=== PATIENT | male | born 1985 | race Caucasian/White ===

== ENCOUNTER 2020-02-10 00:01 | Emergency (ER) | payer MEDICAID ==
[2020-02-10] MEDS ORDERED: LIDOCAINE 1%/EPINEPHRINE INJ 20 ML VIAL INJ ONE (00:20)
[2020-02-10 00:48] LABS: ABSOLUTE BASOPHILS # (AUTO) 0.1 10^3/uL (0.0-0.2); ABSOLUTE EOSINOPHILS # (AUTO) 0.2 10^3/uL (0.0-0.6); ABSOLUTE LYMPHOCYTES (AUTO) 1.7 10^3/uL (0.5-4.7); ABSOLUTE MONOCYTES (AUTO) 0.6 10^3/uL (0.1-1.4); ABSOLUTE NEUT (AUTO) 6.6 10^3/uL (1.7-8.2); BASOPHILS % (AUTO) 0.8 % (0-2); EOSINOPHILS % (AUTO) 1.7 % (0-6); HEMATOCRIT 41.7 % (37.9-51.0); HEMOGLOBIN 14.5 g/dL (13.5-17.0); LYMPHOCYTES % (AUTO) 18.1 % (13-45); MEAN CORPUSCULAR HEMOGLOBIN 30.1 pg (27.0-33.4); MEAN CORPUSCULAR HGB CONC 34.7 g/dL (32.0-36.0); MEAN CORPUSCULAR VOLUME 87 fl (80-97); MONOCYTES % (AUTO) 7.1 % (3-13); PLATELET COUNT 376 10^3/uL (150-450); RED BLOOD COUNT 4.81 10^6/uL (4.35-5.55); RED CELL DISTRIBUTION WIDTH 15.5 % (11.5-14.0); SEGMENTED NEUTROPHILS % (AUTO) 72.3 % (42-78); TOTAL CELLS COUNTED % (AUTO) 100 %; WHITE BLOOD COUNT 9.1 10^3/uL (4.0-10.5)
--- NOTE | 2020-02-10 00:51 | ER Document Report ---
Entered by MARILYN DENNIS SCRIBE 02/10/20 0015 Acting as scribe for:HODA OVIEDO IV, MD ED Psych Disorder / Suicide - General Chief Complaint: Suicidal Ideation Stated Complaint: SUICIDAL IDEATION Time Seen by Provider: 02/10/20 00:06 Mode of Arrival: Medic Information source: Patient, Emergency Med Personnel Notes: This 34 year old male patient with a history of bipolar disorder and schizophrenia brought in by EMS presents to the ED today with complaints of suicidal ideation. Per ED nurse, the patient has been staying in a motel for some time and has been off of his psychiatric medications for approximately x2 months. ED nurse reports that the patient has been having visual and auditory hallucinations for the past x4 days, visualizing people coming in to his hotel room to harm him and hearing commands to harm himself. According to ED nurse, the patient cut his left wrist and neck with a shaving razor as a suicide attempt just prior to arrival. Patient states that he called EMS. Patient has a history of hospitalization in a psychiatric facility and previous suicide attempts, last one over a year ago per ED nurse. Denies any other past medical h istory or taking any medications. Patient states that his tetanus is UTD. - Related Data Allergies/Adverse Reactions: haloperidol [From Haldol] Allergy (Verified 02/10/20 02:06) lithium Allergy (Verified 02/10/20 02:06) risperidone Allergy (Verified 02/10/20 02:08) ziprasidone [From Geodon] Allergy (Verified 02/10/20 02:08) Past Medical History - General Information source: Patient, Emergency Med Personnel - Social History Smoking Status: Unknown if Ever Smoked Cigarette use (# per day): No Chew tobacco use (# tins/day): No Smoking Education Provided: No Family History: Reviewed & Not Pertinent Patient has suicidal ideation: No Patient has homicidal ideation: No Psychiatric Medical History: Reports: Hx Bipolar Disorder, Hx Schizophrenia Past Surgical History: Reports: Hx Appendectomy, Hx Orthopedic Surgery - L shoulder Review of Systems - Review of Systems Constitutional: No symptoms reported EENT: No symptoms reported Cardiovascular: No symptoms reported Respiratory: No symptoms reported Gastrointestinal: No symptoms reported Genitourinary: No symptoms reported Male Genitourinary: No symptoms reported Musculoskeletal: No symptoms reported Skin: See HPI, Other - Lacerations Hematologic/Lymphatic: No symptoms reported Neurological/Psychological: See HPI, Hallucinations - Auditory and visual, Suicidal ideation -: Yes All other systems reviewed and negative Physical Exam - Vital signs Vitals: Temp Pulse Resp BP Pulse Ox 98.4 F 116 H 18 151/91 H 100 02/10/20 00:02 02/10/20 00:02 02/10/20 00:02 02/10/20 00:02 02/10/20 00:02 - General General appearance: Alert In distress: None - HEENT Head: Normocephalic, Atraumatic Eyes: Normal Pupils: PERRL Neck: Other - Multiple superficial lacerations to base of neck - Respiratory Respiratory status: No respiratory distress Chest status: Nontender Breath sounds: Normal Chest palpation: Normal - Cardiovascular Rhythm: Regular Heart sounds: Normal auscultation Murmur: No Friction rub: No Gallop: None auscultated - Abdominal Inspection: Obese Distension: No distension Bowel sounds: Normal Tenderness: Nontender - Abdomen soft Organomegaly: No organomegaly - Back Back: Normal, Nontender - Extremities General lower extremity: Normal inspection Wrist: Laceration - Left wrist - Neurological Neuro grossly intact: Yes - Psychological Associated symptoms: Depressed, Other - Avoids eye contact. Admits to ideas of suicidal ideation - Skin Skin irregularity: Laceration - 5 cm linear laceration to anterior surface of left wrist with minimal bleeding. Multiple superficial linear non-gaping lacerations across base of neck anteriorly with no bleeding. Course - Vital Signs Vital signs: Temp Pulse Resp BP Pulse Ox 98.4 F 116 H 18 151/91 H 100 02/10/20 00:02 02/10/20 00:02 02/10/20 00:02 02/10/20 00:02 02/10/20 00:02 - Laboratory Result Diagrams: 02/10/20 00:37 02/10/20 00:37 Laboratory results interpreted by me: 02/10/20 02/10/20 00:37 00:37 RDW 15.5 H Salicylates < 1.0 L Acetaminophen < 10 L - EKG Interpretation by Me Additional EKG results interpreted by me: 02/10/20 02:38 EKG obtained on 02/10/2020 at 00 56 hours was interpreted by this MD. Findings: Sinus tachycardia, rate 107, normal axis, P waves proceed QRS complexes, QRS complexes appear narrow, there are no obvious patterns of ST segment elevation or depression present to suggest acute myocardial ischemia or infarction. Impression sinus tachycardia with nonspecific ST segments. Procedures - Laceration/Wound Repair Left Anterior Wrist Time completed: 01:00 Wound length (cm): 5 Wound's Depth, Shape: Linear Laceration pre-procedure: Chloraprep applied Anesthetic type: 1% Lidocaine w/epi Volume Anesthetic (mLs): 3 Wound explored: Clean Irrigated w/ Saline (mLs): 20 Wound Repaired With: Sutures Suture Size/Type: 3:0, Prolene Number of Sutures: 18 - running Layer Closure?: No Post-procedure wound care: Sterile dressing applied Post-procedure NV exam normal: Yes Complications: No Discharge - Discharge Clinical Impression: Suicidal ideation, Involuntary commitment Laceration of wrist, left Qualifiers: Encounter type: initial encounter Qualified Code(s): S61.512A - Laceration without foreign body of left wrist, initial encounter Condition: Good Disposition: PSYCH HOSP/UNIT I personally performed the services described in the documentation, reviewed and edited the documentation which was dictated to the scribe in my presence, and it accurately records my words and actions.
[2020-02-10 01:04] LABS: ALBUMIN 3.7 g/dL (3.5-5.0); ALKALINE PHOSPHATASE 91 U/L (38-126); ANION GAP 8 (5-19); ASPARTATE AMINO TRANSFERASE 25 U/L (17-59); BILIRUBIN,TOTAL 0.4 mg/dL (0.2-1.3); BLOOD UREA NITROGEN 11 mg/dL (7-20); CALCIUM 9.4 mg/dL (8.4-10.2); CARBON DIOXIDE 24 mmol/L (22-30); CHLORIDE 106 mmol/L (98-107); GLUCOSE 107 mg/dL (75-110); POTASSIUM 3.7 mmol/L (3.6-5.0)
[2020-02-10 01:05] LABS: ACETAMINOPHEN < 10 ug/mL (10-30); ALCOHOL < 10 mg/dL (NONE DETECTED); SALICYLATE < 1.0 mg/dL (2.0-20.0)
[2020-02-10] MEDS ORDERED: ATORVASTATIN CALCIUM 10 MG TABLET PO ONE (03:00)
[2020-02-10] MEDS ORDERED: MIRTAZAPINE 15 MG TABLET PO ONE (03:00)
[2020-02-10] MEDS ORDERED: PANTOPRAZOLE SODIUM 40 MG TABLET.DR PO SCH (06:00)
[2020-02-10 06:59] LABS: APPEARANCE,URINE CLEAR; BILIRUBIN,URINE NEGATIVE (NEGATIVE); CALCIUM OXALATE CRYSTALS,URINE RARE /HPF; COLOR,URINE YELLOW; GLUCOSE, URINE NEGATIVE (NEGATIVE); KETONES,URINE NEGATIVE (NEGATIVE); LEUKOCYTE ESTERASE,URINE NEGATIVE (NEGATIVE); NITRITE,URINE NEGATIVE (NEGATIVE); PROTEIN,URINE NEGATIVE (NEGATIVE); URINE SPECIFIC GRAVITY 1.025
--- NOTE | 2020-02-10 07:03 | EKG REPORT ---
SEVERITY:- OTHERWISE NORMAL ECG - SINUS TACHYCARDIA : Confirmed by: Sandra Mistry 10-Feb-2020 07:03:33
[2020-02-10 07:13] LABS: URINE BARBITURATES SCREEN NEGATIVE; URINE BENZODIAZEPINES SCREEN NEGATIVE; URINE COCAINE SCREEN NEGATIVE; URINE MARIJUANA (THC) SCREEN NEGATIVE; URINE METHADONE SCREEN NEGATIVE; URINE PHENCYCLIDINE SCREEN NEGATIVE
[2020-02-10] MEDS ORDERED: HYDROCHLOROTHIAZIDE 25 MG TABLET PO SCH (08:00)
[2020-02-10] MEDS ORDERED: CHLORPROMAZINE HCL INJ 25 MG/1 ML AMPULE IM ONE (13:04)
--- NOTE | 2020-02-10 17:26 | PSYCHOLOGICAL NOTE ---
Psych Note - Psych Note Date seen by psych provider: 02/10/20 Time seen by psych provider: 12:14 - [id number] Psych Note: Presenting Problem: Patient is a 34 year old male who presented to the [facility] ED imaging services director hours via EMS for suicidal ideation with gesture: he cut his left wrist (5 centimeter laceration, required sutures) and neck (superficial) with a razor then called 9-1-1. He reported auditory and visual hallucinations. He stated he has diagnoses of Schizophrenia and Bipolar Disorders and has been off medications for the past couple months. Patient was subsequently put on a 24 Hour Petition for Evaluation. Observed patient hit/knock his Styrofoam cup off his tray table and get a loud tone of voice. He presented irritable and agitated but remained in his bed. This clinician was getting ready to walk in for evaluation. When asked what was going on patient said "I'm going to take these stitches out (went for his left wrist wound with his other hand, did not stick with it him but he did touch it) I'd rather be ." He admitted he had medications and was "taking it little by little." He was unable to name his medications. Patient has not been to the [facility] ED previously. He has a [place], [place] address. UDS was positive for methamphetamine (reading was so high on amphetamine screen it noted unable to calculate due to interfering substance). Review of recently filled medication in [facility] system from his pharmacy included: filled on 12/25/2019 Adderal XR 30MG QAM (prescriber Kiel Torres) and Remeron 15MG QHS (prescriber Dr. Nava). Additional medications included Atorvastatin 10MG QHS and Hydrochlorothiazide 25MG QD (both prescriber was Ying TEMPLE) and Omeprazole DR 40MG QD (Prescriber Dr. Nava). Patient was alert and oriented to self, person, place, and situation. Mood was depressed with irritable affect (labile if you include nurses report of patient crying after his phone call) as evidenced by hitting his Styrofoam cup off his food tray and loud tone. He endorsed passive SI saying "I'd rather be ," and had cut his left wrist (5 centimeter laceration required sutures) and neck (superficial) via razor prior to ED. Patient did not appear to be responding to internal stimuli as evidenced by answering questions appropriately when addressed. Thought processes were linear. Conversational speech was loud in tone when irritable bit otherwise within normal limits for rate and prosody. Intellectual abilities are estimated to be average. Insight, judgment and impulse control were poor as evidenced by irritability and continued SI. Collateral: Patient made a phone call to a Lizett ([phone]) from the nurses station. Attending Nurse noted patient told Lizett to just bring his boots to the hospital, that's where he was, that he had tried calling her, he was hearing voices and someone was trying to break into the hotel room he was staying in. Attending Nurse noted then patient started crying. From [phone] spoke to Lizett and her mother over the phone. Mother noted patient and her daughter Lizett met about a month ago when they were hospitalized at [facility]. Patient and Lizett kept in touch after they discharged. Patient told them the trailer his sister set him up in didn't have electricity or water so Lizett offered for him to come visit and stay for a couple days. They stated patient made comments that his sister is his caregiver, she takes all of his money and he doesn't even think she's his sister/he's requested a DNA test/she refuses. They identified patient had been staying with them for about a week. He at first did not present violent and did not talk about voices but per Lizett's mother "he seemed off like his brain wasn't functioning normal." They stated patient takes medication for nightmares and he said his diagnosis is Paranoid Schizophrenia. They stated patient said his medications were back home, Lizett's mother said he couldn't stay with them unless he took his medications, she took him to get 2-3 prescriptions from [facility] and this is why he was staying at the [facility]. Lizett stated she spoke to patient on Monday when she dropped him off at the motel, "he seemed fine, was not worked up." She stated she had not heard again from him until this afternoon when he called her. She reported he told her last night the curtains were moving and he was hearing voices. She denied drug and alcohol use but then mentioned he had 1-2 wine coolers the other day. She also noted she just met him a month ago when they were hospitalized, he has been to another hospital since and now he is in [facility] ED. They do not know sister's name or phone number and patient told them he lost the number. Lizett did say after his week is up at the [facility] she will take him back to where she picked him up from a couple hours away. Interventions: Used open ended questioning to obtain information regarding current crisis situation and past, as well as to get patient to elaborate. Used coming alongside when patient talked about wanting to leave and just . Diagnosis: Suicidal Ideation with gesture via cutting left wrist (5 centimeter laceration, required sutures) and neck (superficial) with razor Methamphetamine Intoxication with Use Hx of Schizophrenia and Bipolar Disorders per patient No medication for the past couple months per patient initial report to medical staff Medication recommendation made by the psychiatric medical provider, Dr. Paige PARDO., includes: Add Thorazine 50MG IM Once Now (only once due to QT and QTc intervals being higher) Impression/Plan: Recommendation for Full IVC (patient was on a 24 Hour Petition for Evaluation). Patient continued to endorse passive SI, had SI gesture via cutting wrist (5 centimeter laceration, required sutures) and neck (superficial) with razor prior to coming to ED, not on medication for a couple months, history of Schizophrenia and Bipolar per patient, UDS positive for Methamphetamine and depressed mood with irritability today (labile if you include nurses reported that after his phone call he started crying). Consulted with Dr. Franklin regarding the management and care of patient. ED Physician in agreement with recommendations.
[2020-02-10 18:34] VITALS: BP 135/70
[2020-02-10] MEDS ORDERED: ATORVASTATIN CALCIUM 10 MG TABLET PO SCH (22:00)
[2020-02-10] MEDS ORDERED: MIRTAZAPINE 15 MG TABLET PO SCH (22:00)
== END 2020-02-10 18:54 ==
LOC: EDSEX → ER 00:01
PROC: 0HQEXZZ Repair Left Lower Arm Skin, External Approach (ICD-10-PCS; principal; 2020-02-10)
DX: S61.512A Laceration without foreign body of left wrist, initial encounter (principal); R44.1 Visual hallucinations; R44.0 Auditory hallucinations; X78.9XXA Intentional self-harm by unspecified sharp object, initial encounter; Z79.899 Other long term (current) drug therapy; Z88.8 Allergy status to other drugs, medicaments and biological substances
CPT/HCPCS: 93005; 99285; 36415; 80307 ×4; 85025; 80053; 81001; 93010; 12002; J3230; J3490 ×3

== ENCOUNTER 2020-02-11 20:28 | Emergency (ER) | payer MEDICAID ==
--- NOTE | 2020-02-11 21:12 | RADIOLOGY REPORT (SQ) ---
CLINICAL INDICATION: PAIN . TECHNIQUE: A single portable AP view was obtained of the chest at 2056 hours. COMPARISON: None. FINDINGS: The cardiomediastinal silhouette is normal. The lungs are grossly clear. No evidence of effusion or pneumothorax. Postsurgical change left clavicle. IMPRESSION: No evidence of active intrathoracic disease. Lungs of low volume but grossly clear
[2020-02-11] MEDS ORDERED: ONDANSETRON HCL INJ/PF 4 MG/2 ML SDV IV ONE (21:22)
[2020-02-11] MEDS ORDERED: MORPHINE SULFATE 10 MG/ML INJ IV ONE (21:22)
[2020-02-11 21:27] LABS: ABSOLUTE BASOPHILS # (AUTO) 0.1 10^3/uL (0.0-0.2); ABSOLUTE EOSINOPHILS # (AUTO) 0.2 10^3/uL (0.0-0.6); ABSOLUTE LYMPHOCYTES (AUTO) 1.9 10^3/uL (0.5-4.7); ABSOLUTE MONOCYTES (AUTO) 0.8 10^3/uL (0.1-1.4); ABSOLUTE NEUT (AUTO) 6.2 10^3/uL (1.7-8.2); BASOPHILS % (AUTO) 0.7 % (0-2); EOSINOPHILS % (AUTO) 2.3 % (0-6); HEMATOCRIT 44.1 % (37.9-51.0); HEMOGLOBIN 15.1 g/dL (13.5-17.0); LYMPHOCYTES % (AUTO) 20.5 % (13-45); MEAN CORPUSCULAR HEMOGLOBIN 29.7 pg (27.0-33.4); MEAN CORPUSCULAR HGB CONC 34.2 g/dL (32.0-36.0); MEAN CORPUSCULAR VOLUME 87 fl (80-97); MONOCYTES % (AUTO) 8.5 % (3-13); PLATELET COUNT 403 10^3/uL (150-450); RED BLOOD COUNT 5.08 10^6/uL (4.35-5.55); RED CELL DISTRIBUTION WIDTH 15.9 % (11.5-14.0); TOTAL CELLS COUNTED % (AUTO) 100 %; WHITE BLOOD COUNT 9.1 10^3/uL (4.0-10.5)
[2020-02-11 21:37] LABS: ALBUMIN 3.8 g/dL (3.5-5.0); ALKALINE PHOSPHATASE 79 U/L (38-126); ANION GAP 8 (5-19); ASPARTATE AMINO TRANSFERASE 25 U/L (17-59); BILIRUBIN,TOTAL 0.3 mg/dL (0.2-1.3); BLOOD UREA NITROGEN 16 mg/dL (7-20); CALCIUM 9.7 mg/dL (8.4-10.2); CARBON DIOXIDE 25 mmol/L (22-30); CHLORIDE 104 mmol/L (98-107); CREATINE KINASE 64 U/L (55-170); GLUCOSE 103 mg/dL (75-110); POTASSIUM 4.5 mmol/L (3.6-5.0); TOTAL PROTEIN 7.1 g/dL (6.3-8.2)
--- NOTE | 2020-02-11 21:43 | ER Document Report ---
ED General <SUSYLOIS SANCHEZAZUCENA Castellon - Last Filed: 02/11/20 22:38> <HODA LEMUS IV - Last Filed: 02/12/20 00:54> - General Chief Complaint: Chest Pain Stated Complaint: CHEST PAIN Time Seen by Provider: 02/11/20 21:01 - HPI Notes: Patient is a 34-year-old male who presents to the emergency department for evaluation of chest pain. He was at [facility] under IVC. He states he woke up, had some chest pain. He sat up and felt dizzy. He describes it as a heaviness that he rates an 8 out of 10. Is on the left side of his chest. It does not radiate. He is short of breath. He does not note anything that makes his chest pain worse. Nothing seems to make it better. He was given aspirin and nitroglycerin in route without any relief of his symptoms. He denies ever having had symptoms like this in the past. (MARCELLO GARCIA) - Related Data Allergies/Adverse Reactions: haloperidol [From Haldol] Allergy (Verified 02/11/20 21:03) lithium Allergy (Verified 02/11/20 21:03) risperidone Allergy (Verified 02/11/20 21:03) ziprasidone [From Geodon] Allergy (Verified 02/11/20 21:03) Past Medical History - General Information source: Patient - Social History Smoking Status: Current Every Day Smoker Frequency of alcohol use: None Drug Abuse: None Family History: Reviewed & Not Pertinent, CAD, DM, Other - Blood clots per patient Patient has homicidal ideation: No Psychiatric Medical History: Reports: Hx Bipolar Disorder, Hx Schizophrenia Past Surgical History: Reports: Hx Appendectomy, Hx Orthopedic Surgery - L shoulder <MARCELLO GARCIA - Last Filed: 02/11/20 22:38> Review of Systems - Review of Systems Cardiovascular: See HPI Respiratory: See HPI -: Yes All other systems reviewed and negative <MARCELLO GARCIA - Last Filed: 02/11/20 22:38> Physical Exam <MARCELLO GARCIA - Last Filed: 02/11/20 22:38> - Vital signs Vitals: Temp Pulse Resp BP Pulse Ox 98.7 F 120 H 30 H 109/60 93 02/11/20 20:28 02/11/20 20:28 02/11/20 20:28 02/11/20 20:28 02/11/20 20:28 - Notes Notes: This is an anxious appearing 34-year-old male, obese, who appears his stated age, in a mild amount of distress. Vital signs reviewed, please refer to chart. Head is normocephalic, atraumatic. Pupils equal round, reactive to light. Neck is supple without meningismus. Heart is tachycardic with normal S1, S2. Lungs are clear to auscultation bilaterally. Abdomen is obese, nontender, normoactive bowel sounds throughout. Extremities without cyanosis, clubbing. Posterior calves are nontender. Peripheral pulses are equal. Skin is warm and dry. Patient is awake, alert, neurological exam is nonfocal. (MARCELLO GARCIA) Course - Laboratory Result Diagrams: 02/11/20 21:05 02/11/20 21:05 - Diagnostic Test Radiology reviewed: Reports reviewed <MARCELLO GARCIA - Last Filed: 02/11/20 22:38> - Laboratory Result Diagrams: 02/11/20 21:05 02/11/20 21:05 - Diagnostic Test Radiology reviewed: Reports reviewed <HODA LEMUS IV - Last Filed: 02/12/20 00:54> - Re-evaluation Re-evalutation: 02/11/20 22:15 Patient presents to the emergency department for evaluation of chest pain. He is morbidly obese, but his pain is not typical anginal pain. It started at rest. I am concerned, however, with possibility of pulmonary embolus in this obese patient with a positive family history of blood clots and tachycardia that I cannot explain. 20-gauge IV was placed in the left before meals and the patient had CT angiogram ordered. His laboratory investigations reveal a completely undetectable first troponin. Second troponin is ordered. He is pain-free after 4 mg of IV morphine. Please note he had no relief from nitroglycerin in route. Patient is stable at this time, we will continue to m onitor. 02/11/20 22:39 Patient remains chest pain-free. His heart rate is in the 90s. His respiratory rate is normal, blood pressure is normalized. Awaiting CT angiogram of the chest and repeat troponin. Assuming these are negative, I believe the patient to be safe to be discharged back to [facility] for further care on his IVC commitment. Dr. Lemus will follow up on repeat troponin and CT angiogram, and ultimate disposition will be determined based on these assessments. (YAZ GARCIA) 02/12/20 00:44 This patient initially presented for psychiatric evaluation and was placed at [facility]. Patient was sent over to the ED by staff at [facility] because during the course of the day yesterday the patient complained of chest pain which Dr. Garcia started the ED MSE for. She checked out the patient to this MD at change of shift at 2200 hrs., stating that if the results of the patient's chest CTA and second troponin were both unremarkable, the patient could be discharged back to [facility]. The CTA chest is negative for pulmonary embolism and the troponin is also unremarkable. This MD informed the charge nurse of the results of the patient's work-up. She stated that she would contact [place] [employer] to take the patient back over to [facility]. 02/12/20 00:50 (HODA LEMUS IV) - Vital Signs Vital signs: Temp Pulse Resp BP Pulse Ox 98.7 F 120 H 15 131/91 H 81 L 02/11/20 20:28 02/11/20 20:28 02/11/20 23:31 02/11/20 23:31 02/11/20 23:31 - Laboratory Laboratory results interpreted by me: 02/11/20 02/11/20 21:05 21:05 RDW 15.9 H Sodium 136.5 L - Diagnostic Test Radiology results interpreted by me: 02/11/20 22:40 Chest X-Ray 02/11/20 00:00 IMPRESSION: No evidence of active intrathoracic disease. Lungs of low volume but grossly clear (MARCELLO GARCIA) - EKG Interpretation by Me Additional EKG results interpreted by me: 02/11/20 21:42 Sinus tachycardia. Normal axis and intervals. No acute ST changes concerning for ischemia or infarction. (MARCELLO GARCIA) Discharge <MARCELLO GARCIA - Last Filed: 02/11/20 22:38> <HODA LEMUS IV - Last Filed: 02/12/20 00:54> - Discharge Clinical Impression: Chest pain, Involuntary commitment Condition: Stable Disposition: PSYCH HOSP/UNIT
[2020-02-11 21:49] LABS: CREATINE KINASE MB 1.08 ng/mL (<4.55)
[2020-02-11 21:51] LABS: TROPONIN I < 0.012 ng/mL
--- NOTE | 2020-02-11 22:46 | RADIOLOGY REPORT (SQ) ---
EXAM DESCRIPTION: CT pulmonary angiogram of the chest with IV contrast. CLINICAL HISTORY: 34 years Male; chest pain, dyspnea, eval for PE TECHNIQUE: CT angiogram of the chest using intravenous contrast.. MIP reconstructions were performed. All CT scans at this facility use dose modulation, iterative reconstruction, and/or weight based dosing when appropriate to reduce radiation dose to as low as reasonably achievable. COMPARISON: Single view of the chest obtained earlier in the evening FINDINGS: Chest: Vascular: No pulmonary embolization is identified. Thoracic aorta is of normal caliber. No aneurysm. Lungs: Lung volumes are low. Dependent density is present in the lung parenchyma posteriorly and along the fissure. No focal consolidation. No pneumothorax or pleural effusion. No pulmonary nodules or masses. Mediastinum: Heart size is at upper limits of normal. There is a large amount of mediastinal fat which accounts for the widened appearance on the chest radiograph. No mediastinal or hilar lymphadenopathy. Visualized portion of the thyroid gland is normal. Bones and soft tissues: Schmorl's nodes are noted in the thoracic spine. No destructive bone lesions. Soft tissues are unremarkable. Upper Abdomen: Visualized portion of the upper abdomen is unremarkable. IMPRESSION: 1. No pulmonary embolism. 2. Low lung volumes with dependent density in the lung parenchyma which is nonspecific. No acute process.
[2020-02-12 01:50] VITALS: BP 114/80
--- NOTE | 2020-02-12 07:44 | EKG REPORT ---
SEVERITY:- OTHERWISE NORMAL ECG - SINUS TACHYCARDIA : Confirmed by: Claudine Gunn MD 12-Feb-2020 07:43:48
== END 2020-02-12 01:49 ==
LOC: ER 20:28
DX: R07.9 Chest pain, unspecified (principal); R42 Dizziness and giddiness; R00.0 Tachycardia, unspecified; F17.200 Nicotine dependence, unspecified, uncomplicated
CPT/HCPCS: 93005; 99285; 96374; 96375; 36415; 82553; 82550; 85025; 80053; 84484; 71045; 71275; 93010; J2270; J2405